=== PATIENT | female | born 1950 | race Caucasian/White ===

== ENCOUNTER 2019-05-10 20:04 | Emergency (ER) | payer OTHER ==
[~2019-05-10] VITALS: Ht 165.1 cm; Wt 104.3 kg
[2019-05-10 20:18] VITALS: Ht 165.1 cm; Wt 104.3 kg
[2019-05-10 22:01] VITALS: BP 163/85
== END 2019-05-10 22:01 | disposition home or self-care (01) ==
LOC: ED 20:04
DX: S52.101A Unspecified fracture of upper end of right radius, initial encounter for closed fracture (principal); S53.401A Unspecified sprain of right elbow, initial encounter; S63.501A Unspecified sprain of right wrist, initial encounter; S43.401A Unspecified sprain of right shoulder joint, initial encounter; I10 Essential (primary) hypertension; E11.9 Type 2 diabetes mellitus without complications; W18.30XA Fall on same level, unspecified, initial encounter; Y93.89 Activity, other specified; Y92.89 Other specified places as the place of occurrence of the external cause; Y99.8 Other external cause status